=== PATIENT | female | born 1995 | race Caucasian/White ===

== ENCOUNTER 2020-02-12 17:55 | Observation (INO) | payer OTHER ==
[~2020-02-12] VITALS: Ht 157.5 cm; Wt 75.7 kg
[2020-02-12] MEDS ORDERED: PREN-380 PO (18:47)
[2020-02-12 18:50] VITALS: BP 129/74
== END 2020-02-12 19:45 | disposition home or self-care (01) ==
LOC: MLD 17:55
PROVIDERS: ADMIT Obstetrics & Gynecology; ATTEND Obstetrics & Gynecology
DX: O26.852 Spotting complicating pregnancy, second trimester (principal); Z3A.25 25 weeks gestation of pregnancy
CPT/HCPCS: 76817; 81000; G0378; Q0092

== ENCOUNTER 2020-05-11 12:50 | Outpatient (CLI) | payer OTHER, SELFPAY ==
[~2020-05-11 12:50] MED LIST: PREN-380 PO
== END 2020-05-11 18:39 | disposition home or self-care (01) ==
LOC: MLB 12:50
PROVIDERS: ATTEND Obstetrics & Gynecology
DX: Z11.59 Encounter for screening for other viral diseases (principal)
CPT/HCPCS: U0003-CS